=== PATIENT | female | born 1950 | race African-American/Black ===

== ENCOUNTER 2016-10-15 16:15 | Emergency (ER) | payer MEDICARE, OTHER ==
[~2016-10-15 16:15] MED LIST: Iopamidol 370 76% 100 ML VIAL ONE
[2016-10-15] MEDS ORDERED: Mag-Al Plus 1200 MG/1200 MG/120 MG/30 ML UDCUP ONE (16:34)
[2016-10-15] MEDS ORDERED: Lidocaine Viscous Sol 2% 15 ml UD Cup ONE (16:34)
[2016-10-15 17:03] LABS: #Basophils 0.1 thou/uL (0.0-0.2); #Eosinphils 0.1 thou/uL (0.0-0.7); #Lymphocytes 4.4 thou/uL (1.20-3.40); #Monocytes 0.9 thou/uL (0.11-0.59); %Basophils 1.4 % (0.0-1.0); %Lymphocytes 41.9 % (21.0-51.0); %Monocytes 8.2 % (0.0-10.0); %Neutrophils 47.6 % (42.0-75.0); Hemoglobin 12.8 g/dL (12.0-16.0); Mean Corpuscular HGB CONC 30.9 g/dL (32.0-36.0); Mean Corpuscular Hemoglobin 27.8 pg (27.0-31.0); Mean Corpuscular Volume 90.1 fl (81.0-99.0); Mean Platelet Volume 9.9 fL (7.4-10.4); Platelet Count 273 thou/uL (130-400); RBC Distribution Width 13.8 % (11.5-14.5); White Blood Cell (WBC) Count 10.5 thou/uL (4.8-10.8)
[2016-10-15 17:05] LABS: ALT (SGPT) 14 U/L (0-55); AST (SGOT) 12 U/L (5-34); Albumin 4.3 g/dL (3.4-4.8); Alkaline Phosphatase 105 U/L (40-150); Anion Gap 16 mmol/L (10-20); BUN (Urea Nitrogen) 21 mg/dL (9.8-20.1); Bilirubin, Total 0.2 mg/dL (0.2-1.2); CKMB 0.8 ng/mL (0-6.6); Calc. Creatinine Clearance 0 mL/min (70-130); Calcium 9.6 mg/dL (7.8-10.44); Carbon Dioxide 23 mmol/L (23-31); Chloride 106 mmol/L (98-107); Estimated GFR-MDRD 68; Globulin 3.3 g/dL (2.4-3.5); Glucose 117 mg/dL (80-115); Lipase 27 U/L (8-78); Protein, Total 7.6 g/dL (5.8-8.1); Sodium 141 mmol/L (136-145); Troponin I 0.011 ng/mL (< 0.028)
--- NOTE | 2016-10-15 17:14 | RAD ---
AP PORTABLE CHEST: 10/15/16 HISTORY: Chest pain. COMPARISON: 10/22/14. The heart is enlarged. Vascularity is mildly prominent. No definite infiltrate or significant effusi on. The exam is limited due to soft tissue attenuation. IMPRESSION: Cardiomegaly with mild vascular engorgement. POS: [facility]
[2016-10-15] MEDS ORDERED: Pantoprazole 40 MG VIAL ONE (17:35)
[2016-10-15] MEDS ORDERED: Sodium Chloride 0.9% 0 ML ONE (17:35)
[2016-10-15] MEDS ORDERED: Sodium Chloride 0.9% 100 ML ONE (17:35)
[2016-10-15] MEDS ORDERED: Morphine Sulfate 2 MG/ML SYRINGE ONE (17:43)
--- NOTE | 2016-10-15 18:30 | CT ---
CT ANGIO OF CHEST WITH CONTRAST: 10/15/16 Multiple axial tomograms obtained through chest with angio protocol. Multiplanar reconstructions and 3D postprocessing performed. HISTORY: Chest pain. The pulmonary arteries appear normally opacified. No evidence of pulmonary embolus identified. The lung medley are well aerated. There is evidence of mild vascular congestion. There is no infiltr ate or effusion. There is an 8 mm nodule in the right mid lung along the major fissure. There is another small 5 mm n odule in the peripheral right mid lung also adjacent to the fissure or possibly a lateral right midd le lobe segment. Another more subtle 4 to 5 mm nodule in the more anterior right upper lobe. Image through the upper abdomen unremarkable. IMPRESSION: 1. No evidence of pulmonary embolus. 2. Mild vascular congestion. 3. There are at least two and possible three nodular densities seen in the right lung. At least one of these measures up to 8 mm and will need followup. Suggest a followup noncontrast CT chest in 6 months to evaluate these pulmonary nodules. Code LN POS: [email or web address]
== END 2016-10-15 18:55 | disposition home or self-care (01) ==
LOC: NAV ERS 16:15
DX: K21.9 Gastro-esophageal reflux disease without esophagitis (principal); J45.909 Unspecified asthma, uncomplicated; J44.9 Chronic obstructive pulmonary disease, unspecified; E78.5 Hyperlipidemia, unspecified; I10 Essential (primary) hypertension; G62.9 Polyneuropathy, unspecified; F41.0 Panic disorder [episodic paroxysmal anxiety]; F17.210 Nicotine dependence, cigarettes, uncomplicated; Z79.891 Long term (current) use of opiate analgesic; Z79.899 Other long term (current) drug therapy
CPT/HCPCS: 71010; 71275; 80053; 82553; 83690; 83880; 84484; 85025; 85379; 93005; 96365; 96375; C9113; J2270; J7050

== ENCOUNTER 2016-12-21 12:32 | Outpatient (CLI) | payer MEDICARE ==
[2016-12-21 14:04] LABS: Anion Gap 20 mmol/L (10-20); BUN (Urea Nitrogen) 21 mg/dL (9.8-20.1); Calc. Creatinine Clearance 0 mL/min (70-130); Calcium 9.3 mg/dL (7.8-10.44); Carbon Dioxide 20 mmol/L (23-31); Cardiac Risk 3.6 (Less than 4.5); Chloride 106 mmol/L (98-107); Cholesterol 221 mg/dl (< 200 Desired); Estimated GFR-MDRD 77; Glucose 107 mg/dL (80-115); HDL Cholesterol 61 mg/dL (>60 Neg Risk); LDL Cholesterol, Calculated 141 mg/dL; Potassium 5.5 mmol/L (3.5-5.1); Sodium 140 mmol/L (136-145); Triglycerides 97 mg/dL (Less than 150)
== END 2016-12-21 12:33 | disposition home or self-care (01) ==
LOC: NAVSJIPCSP 12:32
PROVIDERS: ATTEND Internal Medicine
DX: Z51.81 Encounter for therapeutic drug level monitoring (principal); Z79.899 Other long term (current) drug therapy
CPT/HCPCS: 36415; 80048; 80061; 83036; 84443

== ENCOUNTER 2017-01-06 14:09 | Outpatient (CLI) | payer OTHER, MEDICARE ==
--- NOTE | 2017-01-06 15:30 | CT ---
CT OF THE CHEST WITHOUT CONTRAST: Comparison: 10-15-16 History: Pulmonary nodules. Technique: Multiple contiguous axial images were obtained in a CTA of the chest without contrast. Co eduardo reformats were performed. FINDINGS: There are stable pulmonary nodules in the right lung. A calcified granuloma is seen in the right mid dle lobe. There is a stable 6 mm nodule on image 30 of 56 in the right middle lobe. There is a nodul ar opacity in the right upper lobe on image 22 of 56. There is a stable pulmonary nodule adjacent to the fissure in the right lower lobe measuring 8 mm in size. No other pulmonary nodules are seen. No pneumothorax or pleural effusion are seen. The heart is normal in size. Calcifications are seen in the coronary arteries. No hilar or mediastin al lymphadenopathy are seen. The visualized subdiaphragmatic structures are unremarkable. Degenerative changes are seen in the sp ine. The visualized chest wall soft tissues are unremarkable. IMPRESSION: Stable pulmonary nodules. POS: [facility]
== END 2017-01-06 14:10 | disposition home or self-care (01) ==
LOC: NAV CT 14:09
PROVIDERS: ATTEND Internal Medicine
DX: J44.9 Chronic obstructive pulmonary disease, unspecified (principal); R91.8 Other nonspecific abnormal finding of lung field
CPT/HCPCS: 71250

== ENCOUNTER 2017-04-23 02:34 | Emergency (ER) | payer OTHER, MEDICARE ==
[2017-04-23] MEDS ORDERED: Lorazepam 1 MG TAB ONE (02:49)
== END 2017-04-23 03:35 | disposition home or self-care (01) ==
LOC: NAV ERS 02:34
DX: F43.22 Adjustment disorder with anxiety (principal); K21.9 Gastro-esophageal reflux disease without esophagitis; J44.9 Chronic obstructive pulmonary disease, unspecified; E78.5 Hyperlipidemia, unspecified; I10 Essential (primary) hypertension; F17.210 Nicotine dependence, cigarettes, uncomplicated
CPT/HCPCS: 99283

== ENCOUNTER 2018-11-15 16:22 | Outpatient (CLI) | payer MEDICARE, OTHER ==
[2018-11-15 18:22] LABS: ALT (SGPT) 20 U/L (8-55); AST (SGOT) 21 U/L (5-34); Albumin 3.9 g/dL (3.4-4.8); Alkaline Phosphatase 105 U/L (40-150); Anion Gap 17 mmol/L (10-20); BUN (Urea Nitrogen) 28 mg/dL (9.8-20.1); Bilirubin, Total 0.2 mg/dL (0.2-1.2); Calc. Creatinine Clearance 0 mL/min (70-130); Calcium 10.3 mg/dL (7.8-10.44); Carbon Dioxide 22 mmol/L (23-31); Chloride 108 mmol/L (98-107); Estimated GFR-MDRD 89; Globulin 3.3 g/dL (2.4-3.5); Glucose 110 mg/dL (80-115); Potassium 3.7 mmol/L (3.5-5.1); Protein, Total 7.2 g/dL (6.0-8.3); Sodium 143 mmol/L (136-145)
[2018-11-15 19:04] LABS: #Basophils 0.2 thou/uL (0.0-0.2); #Eosinphils 0.1 thou/uL (0.0-0.7); #Lymphocytes 5.2 thou/uL (1.20-3.40); #Monocytes 0.7 thou/uL (0.11-0.59); #Neutrophils 5.5 thou/uL (1.40-6.50); %Basophils 1.3 % (0.0-1.0); %Eosinophils 1.3 % (0.0-10.0); %Lymphocytes 44.3 % (21.0-51.0); %Monocytes 5.9 % (0.0-10.0); %Neutrophils 47.1 % (42.0-75.0); Hemoglobin 13.5 g/dL (12.0-16.0); Mean Corpuscular Hemoglobin 26.4 pg (27.0-31.0); Mean Corpuscular Volume 85.3 fL (78.0-98.0); Mean Platelet Volume 10.6 fL (7.4-10.4); Platelet Count 227 thou/uL (130-400); RBC Distribution Width 13.1 % (11.5-14.5); Red Blood Cell (RBC) Count 5.13 mill/uL (4.20-5.40); White Blood Cell (WBC) Count 11.6 thou/uL (4.8-10.8)
== END 2018-11-15 16:23 | disposition home or self-care (01) ==
LOC: NAV LAB 16:22
PROVIDERS: ATTEND Internal Medicine
DX: K27.9 Peptic ulcer, site unspecified, unspecified as acute or chronic, without hemorrhage or perforation (principal); K92.1 Melena; I10 Essential (primary) hypertension
CPT/HCPCS: 36415; 80053; 85025

== ENCOUNTER 2019-04-21 09:37 | Emergency (ER) | payer MEDICARE ==
[2019-04-21] MEDS ORDERED: Lorazepam 2 MG/ML VIAL ONE (09:52)
== END 2019-04-21 10:31 | disposition home or self-care (01) ==
LOC: NAV ERS 09:37
DX: F41.9 Anxiety disorder, unspecified (principal); E78.5 Hyperlipidemia, unspecified; E78.00 Pure hypercholesterolemia, unspecified; K21.9 Gastro-esophageal reflux disease without esophagitis; J44.9 Chronic obstructive pulmonary disease, unspecified; I10 Essential (primary) hypertension; M79.7 Fibromyalgia; G62.9 Polyneuropathy, unspecified; Z79.899 Other long term (current) drug therapy; F17.210 Nicotine dependence, cigarettes, uncomplicated
CPT/HCPCS: 96372; 99283; J2060

== ENCOUNTER 2019-11-21 15:04 | Outpatient (CLI) | payer MEDICARE ==
[2019-11-21 15:53] LABS: #Basophils 0.1 thou/uL (0.0-0.2); #Eosinphils 0.1 thou/uL (0.0-0.7); #Lymphocytes 1.8 thou/uL (1.20-3.40); #Monocytes 0.5 thou/uL (0.11-0.59); #Neutrophils 3.8 thou/uL (1.40-6.50); %Basophils 0.9 % (0.0-1.0); %Eosinophils 1.6 % (0.0-10.0); %Lymphocytes 29.2 % (21.0-51.0); %Monocytes 7.6 % (0.0-10.0); %Neutrophils 60.7 % (42.0-75.0); Hemoglobin 12.6 g/dL (12.0-16.0); Mean Corpuscular HGB CONC 29.4 g/dL (32.0-36.0); Mean Corpuscular Hemoglobin 28.4 pg (27.0-31.0); Mean Corpuscular Volume 96.7 fL (78.0-98.0); Mean Platelet Volume 12.1 fL (7.4-10.4); Platelet Count 192 thou/uL (130-400); RBC Distribution Width 14.8 % (11.5-14.5); Red Blood Cell (RBC) Count 4.44 mill/uL (4.20-5.40); White Blood Cell (WBC) Count 6.3 thou/uL (4.8-10.8)
[2019-11-21 16:05] LABS: ALT (SGPT) 11 U/L (8-55); AST (SGOT) 11 U/L (5-34); Albumin 4.1 g/dL (3.4-4.8); Alkaline Phosphatase 91 U/L (40-110); Anion Gap 12 mmol/L (10-20); BUN (Urea Nitrogen) 9 mg/dL (9.8-20.1); Bilirubin, Total 0.3 mg/dL (0.2-1.2); Calc. Creatinine Clearance 0 mL/min (70-130); Calcium 9.2 mg/dL (7.8-10.44); Carbon Dioxide 27 mmol/L (23-31); Cardiac Risk 4.6 (Less than 4.5); Chloride 105 mmol/L (98-107); Cholesterol 242 mg/dl (< 200 Desired); Estimated GFR-MDRD 84; Globulin 3.1 g/dL (2.4-3.5); Glucose 123 mg/dL (80-115); HDL Cholesterol 53 mg/dL (>60 Neg Risk); LDL Cholesterol, Calculated 167 mg/dL; Potassium 3.7 mmol/L (3.5-5.1); Protein, Total 7.2 g/dL (6.0-8.3); Sodium 140 mmol/L (136-145); Triglycerides 108 mg/dL (Less than 150)
[2019-11-21 16:41] LABS: Bilirubin Negative (Negative); Blood, Urine Negative (Negative); Clarity Clear (Clear); Glucose, Urine (Dipstick) Negative (Negative); Leukocyte Negative (Negative); Nitrite Negative (Negative); Protein, Urine (Dipstick) Negative (Neg-Trace); Urobilinogen 0.2 mg/dL (Less than 2)
[2019-11-26 17:55] LABS: T4 8.1 ug/dL (4.87-11.72)
== END 2019-11-21 15:05 | disposition home or self-care (01) ==
LOC: NAV LAB 15:04
PROVIDERS: ATTEND Internal Medicine
DX: E05.90 Thyrotoxicosis, unspecified without thyrotoxic crisis or storm (principal); F51.01 Primary insomnia; I10 Essential (primary) hypertension
CPT/HCPCS: 80053; 80061; 81003; 84436; 84443; 84480; 85025

== ENCOUNTER 2021-05-26 11:39 | Emergency (ER) | payer MEDICARE ==
[2021-05-26 12:44] LABS: #Basophils 0.1 thou/uL (0.0-0.2); #Eosinphils 0.1 thou/uL (0.0-0.7); #Lymphocytes 2.3 thou/uL (1.20-3.40); #Monocytes 0.7 thou/uL (0.11-0.59); #Neutrophils 4.3 thou/uL (1.40-6.50); %Basophils 1.5 % (0.0-1.0); %Eosinophils 1.5 % (0.0-10.0); %Lymphocytes 30.8 % (21.0-51.0); %Monocytes 8.8 % (0.0-10.0); %Neutrophils 57.3 % (42.0-75.0); Hemoglobin 13.5 g/dL (12.0-16.0); Mean Corpuscular HGB CONC 31.1 g/dL (32.0-36.0); Mean Corpuscular Hemoglobin 28.4 pg (27.0-31.0); Mean Corpuscular Volume 91.3 fL (78.0-98.0); Mean Platelet Volume 12.3 fL (7.4-10.4); Platelet Count 177 thou/uL (130-400); RBC Distribution Width 13.9 % (11.5-14.5); Red Blood Cell (RBC) Count 4.74 mill/uL (4.20-5.40); White Blood Cell (WBC) Count 7.4 thou/uL (4.8-10.8)
[2021-05-26] MEDS ORDERED: Aspirin Chewable 81 MG TAB ONE (12:49)
[2021-05-26] MEDS ORDERED: Lorazepam 2 MG/ML VIAL ONE (12:49)
[2021-05-26 12:57] LABS: ALT (SGPT) 13 U/L (8-55); AST (SGOT) 16 U/L (5-34); Albumin 3.9 g/dL (3.4-4.8); Alkaline Phosphatase 84 U/L (40-110); Anion Gap 14 mmol/L (10-20); BUN (Urea Nitrogen) 10 mg/dL (9.8-20.1); Bilirubin, Total 0.4 mg/dL (0.2-1.2); CK (CPK) 152 U/L (29-168); Calc. Creatinine Clearance 0 mL/min (70-130); Carbon Dioxide 26 mmol/L (23-31); Chloride 103 mmol/L (98-107); Glucose 91 mg/dL (80-115); Lipase 17 U/L (8-78); Potassium 3.1 mmol/L (3.5-5.1); Protein, Total 7.9 g/dL (5.8-8.1); Sodium 140 mmol/L (136-145)
[2021-05-26 13:13] LABS: CKMB 2.6 ng/mL (0-6.6)
[2021-05-26] MEDS ORDERED: Nitroglycerin 2% Ointment 1 INCH/1 GM Packet ONE (13:33)
[2021-05-26] MEDS ORDERED: Acetaminophen 500 MG TAB ONE (13:36)
[2021-05-26 14:58] LABS: SARS-CoV-2 NAA Rapid Test Not Detected (NotDetected)
[2021-05-26 15:47] LABS: Troponin I 0.043 ng/mL (< 0.028)
== END 2021-05-26 17:46 | disposition short-term general hospital (02) ==
LOC: NAV ERS 11:39
DX: R07.2 Precordial pain (principal); R79.89 Other specified abnormal findings of blood chemistry; Z20.822 Contact with and (suspected) exposure to COVID-19; E03.9 Hypothyroidism, unspecified; K21.9 Gastro-esophageal reflux disease without esophagitis; E78.5 Hyperlipidemia, unspecified; I10 Essential (primary) hypertension; F17.210 Nicotine dependence, cigarettes, uncomplicated; J44.9 Chronic obstructive pulmonary disease, unspecified; Z79.899 Other long term (current) drug therapy
CPT/HCPCS: 71045; 80053; 82550; 82553; 83690; 84484 ×2; 85025; 93005; U0002; 36415; 96372; J2060

== ENCOUNTER 2023-07-18 12:20 | Emergency (ER) | payer MEDICARE | END 2023-07-18 13:36 | disposition home or self-care (01) | LOC: NAV ERS 12:20 | DX: L30.9 Dermatitis, unspecified (principal); E78.00 Pure hypercholesterolemia, unspecified; I10 Essential (primary) hypertension; F17.210 Nicotine dependence, cigarettes, uncomplicated; Z79.899 Other long term (current) drug therapy | CPT/HCPCS: 99282 ==